=== PATIENT | male | born 1985 | race Caucasian/White ===

== ENCOUNTER 2017-07-28 10:03 | Emergency (ER) | payer OTHER ==
[~2017-07-28] VITALS: Ht 172.7 cm; Wt 97.7 kg
[~2017-07-28 10:03] MED LIST: DUO-KAPS1 CAP PO
[2017-07-28 10:15] VITALS: BP 134/84; PULSE 89; TEMP 99.1
[2017-07-28] MEDS ORDERED: AMOXICILLIN 8751 TAB PO (10:45)
== END 2017-07-28 10:58 | disposition home or self-care (01) ==
LOC: COL.ER 10:03
DX: H00.021 Hordeolum internum right upper eyelid (principal)